=== PATIENT | male | born 1945 | race Caucasian/White ===

== ENCOUNTER 2016-11-22 14:26 | Emergency (ER) | payer MEDICARE, BC ==
[2016-11-22] MEDS ORDERED: Sodium Chloride 0.9% 10 ML Syringe FLUSH PRN ×2 (14:34)
[2016-11-22] MEDS ORDERED: Ondansetron 4 MG/2 ML SDV IVPUSH ONE (14:37)
[2016-11-22] MEDS ORDERED: HYDROmorphone 1 MG/ML Syringe IVPUSH ONE (14:37)
--- NOTE | 2016-11-22 14:43 | EDM.PDOC ---
ED HPI GENERAL MEDICAL PROBLEM - General Chief Complaint: Upper Extremity Injury/Pain Stated Complaint: HURT LT ARM/WRIST Time Seen by Provider: 11/22/16 14:33 Source of Information: Reports: Patient, Family, RN Notes Reviewed History Limitations: Reports: No Limitations - History of Present Illness INITIAL COMMENTS - FREE TEXT/NARRATIVE: 71-year-old gentleman presents emergency department today, fall from a ladder he estimates 5-6 feet he fell predominantly on outstretched arm left side he is complaining of left wrist pain. He denies any loss of consciousness does admit to taking blood thinners of Plavix ,last meal this morning recalls all the details of the mechanism action, past medical history of diabetes, hypertension and dyslipidemia as well as coronary artery disease - Related Data Allergies Allergy/AdvReac Type Severity Reaction Status Date / Time meperidine HCl [From Demerol] Allergy Hallucinati Verified 11/22/16 15:46 ons Penicillins Allergy Hives Verified 11/22/16 15:46 Home Meds: Home Meds Carvedilol [Coreg] 1 tab PO BID 12/19/13 [History] Hydrochlorothiazide 1 tab PO BID 12/19/13 [History] Lisinopril 2 tab PO BID 12/19/13 [History] Omeprazole [Prilosec] 1 tab PO DAILY 12/19/13 [History] amLODIPine [Norvasc] 1 tab PO DAILY 12/19/13 [History] atorvaSTATin [Lipitor] 1 tab PO BEDTIME 12/19/13 [History] metFORMIN [Glucophage] 1,000 mg PO BID 12/19/13 [History] Aspirin 1 tab PO DAILY 09/05/15 [History] Clopidogrel [Plavix] 1 tab PO DAILY 09/05/15 [History] Tamsulosin [Flomax] 1 tab PO BEDTIME 09/05/15 [History] Isosorbide Mononitrate [Isosorbide Mononitrate ER] 30 mg PO DAILY 11/22/16 [ History] Past Medical History Cardiovascular History: Reports: CAD, High Cholesterol, Hypertension Endocrine/Metabolic History: Reports: Diabetes, Type II Social & Family History - Tobacco Use Smoking Status *Q: Never Smoker Review of Systems - Review of Systems Review Of Systems: See Below Constitutional: Reports: No Symptoms Eyes: Reports: No Symptoms Ears: Reports: No Symptoms Nose: Reports: No Symptoms Mouth/Throat: Reports: No Symptoms Respiratory: Reports: No Symptoms Cardiovascular: Reports: No Symptoms GI/Abdominal: Reports: No Symptoms Genitourinary: Reports: No Symptoms Musculoskeletal: Reports: Joint Pain (Left wrist pain) Skin: Reports: Wound Neurological: Reports: No Symptoms Psychiatric: Reports: No Symptoms ED EXAM, GENERAL - Physical Exam Exam: See Below Free Text/Narrative:: 71-year-old gentleman GCS of 15, airways open patent clear able speak in full sentences without difficulty following commands, respiration is symmetrical lungs are clear to auscultation bilaterally cardiovascular demonstrates regular rate and rhythm S1-S2. General: Male, moderate discomfort secondary to pain, alert and oriented x3 HEENT: head is atraumatic normocephalic, eyes pupils equal round reactive to light, sclera clear no conjunctivitis appreciated. Ears tympanic membranes clear and fischer landmarks and light reflex are present bilaterally canals are clear. Nose no septal deviation, nares are clear, no blood present. Mouth mucosa is moist and pink no erythema or exudate noted in soft palate, tongue is midline uvula is midline, dentition is intact. Neck: Supple no thyromegaly no tracheal deviation., No tenderness to palpation spinally or paraspinally full range of motion without pain Nodes: Cervical nodes subclavicular nodes nontender no palpable lymphadenopathy noted. Lungs: clear to auscultation bilaterally with symmetrical respirations, no adventitious noise appreciated. CV: Regular rate and rhythm S1 and S2 appreciated no murmurs rubs or gallops noted. Chest: No tenderness to palpation, no brusing noted Abdomen: Soft, nontender, no palpable masses or organomegaly appreciated, no distention no guarding bowel sounds are present, . Neuro: Cranial nerves II through XII grossly intact Skin: Blood and wound present on the left hand Extremities: Extremities pelvic rock's is negative no tenderness to knees ankles bilaterally right shoulder elbow and wrist no tenderness no tenderness to left shoulder and elbow there is an obvious deformity to the left wrist he is exquisitely tender to palpation capillary refill at the fingernails is less than 2 seconds ED TRAUMA EXTREMITY PROCEDURES - Laceration/Wound Repair Left Finger Lac/Wound Length In cm: 1.5 Appearance: Subcutaneous Distal NVT: Neuro & Vascular Intact, No Tendon Injury Anesthetic Type: Digital Local Anesthesia - Lidocaine (Xylocaine): 1% Plain Local Anesthetic Volume: 2cc Skin Prep: Chlorhexidine (Hibiciens) Saline Irrigation (cc's): 60 Exploration/Debridement/Repair: Wound Explored, In a Bloodless Field, Explored to Base Closed With: Sutures Suture Size: 4-0 # of Sutures: 3 Suture Type: Nylon, Interrupted Sterile Dressing Applied: Nurse Tetanus Status Addressed: Yes (Today) Complications: No - Joint Reduction Site: Other (Left wrist) Sedation: Conscious Cedation Pre-Procedure NV Status: Normal Post-Procedure NV Status: Normal Technique: Traction/Counter Traction Number of Attempts: 1 Post-Reduction Imaging: Completely Reduced Joint Reduction Complications: Yes Progress/Comments: After adequate anesthesia done by [employer], traction countertraction was performed with volar pressure this was done underneath fluoroscopy C-arm when good position and alignment was obtained a sugar tong splint was placed under general traction, radial pulse +2 full range of motion of all digits after procedure was observed - Splinting Left Upper Extremity Splint Site: Wrist Pre-Procedure NV Status: Normal Post-Procedure NV Status: Normal Splint Material: Fiberglass Splint Design: Sugar Tong Applied & Form Fitted By: Provider Provider Post-Splint Application NV Check: NV Status Normal, Good Position Complications: No Course - Vital Signs Last Recorded V/S: Last Vital Signs Temp 96.4 F 11/22/16 14:34 Pulse 60 11/22/16 15:40 Resp 14 11/22/16 15:40 BP 125/78 11/22/16 15:40 Pulse Ox 96 11/22/16 15:40 - Orders/Labs/Meds Orders: Active Orders 24 hr Category Date Time Status Peripheral IV Care [RC] . DIRECTED Care 11/22/16 14:36 Active Vaccines to be Administered [RC] PER UNIT ROUTINE Care 11/22/16 17:03 Ordered Fluoro Up To 1Hr [CR] Stat Exams 11/22/16 16:40 Ordered Hip Min 2V or 3V w Pelvis Lt [CR] Stat Exams 11/22/16 14:52 Taken Wrist 2V Lt [CR] Stat Exams 11/22/16 14:36 Taken Sodium Chloride 0.9% [Saline Flush] Med 11/22/16 14:34 Active 10 ml FLUSH ASDIRECTED PRN Sodium Chloride 0.9% [Saline Flush] Med 11/22/16 14:34 Active 10 ml FLUSH ASDIRECTED PRN ceFAZolin [Ancef] 2 gm Med 11/22/16 17:00 Active Sodium Chloride 0.9% [Normal Saline] 50 ml IV ONETIME Peripheral IV Insertion Adult [OM.PC] Urgent Oth 11/22/16 14:34 Ordered Medication Orders Cefazolin Sodium 2 gm/ Sodium (Chloride) 50 mls @ 100 mls/hr IV ONETIME ONE Stop: 11/22/16 17:29 Last Admin: 11/22/16 16:52 Dose: 100 mls/hr Sodium Chloride (Saline Flush) 10 ml FLUSH ASDIRECTED PRN PRN Reason: Keep Vein Open Sodium Chloride (Saline Flush) 10 ml FLUSH ASDIRECTED PRN PRN Reason: Keep Vein Open Meds: Medications Generic Name Dose Route Start Last Admin Trade Name Freq PRN Reason Stop Dose Admin Cefazolin Sodium 2 gm/ Sodium 50 mls @ 100 mls/hr 11/22/16 17:00 11/22/16 16: 52 Chloride IV 11/22/16 17:29 100 mls/hr ONETIME ONE Administration Sodium Chloride 10 ml 11/22/16 14:34 Saline Flush FLUSH ASDIRECTED PRN Keep Vein Open Sodium Chloride 10 ml 11/22/16 14:34 Saline Flush FLUSH ASDIRECTED PRN Keep Vein Open Discontinued Medications Generic Name Dose Route Start Last Admin Trade Name Freq PRN Reason Stop Dose Admin Bacitracin 1 dose 11/22/16 16:39 11/22/16 16:55 Bacitracin Oint 1 Gm TOP 11/22/16 16:40 1 dose ONETIME ONE Administration Diphtheria/Tetanus/Acell Pertussis 0.5 ml 11/22/16 17:03 Adacel IM 11/22/16 17:04 .ONCE ONE Hydromorphone HCl 1 mg 11/22/16 14:37 11/22/16 14:44 Dilaudid IVPUSH 11/22/16 14:38 1 mg ONETIME ONE Administration Lidocaine HCl 5 ml 11/22/16 16:39 11/22/16 16:55 Xylocaine-Mpf 1% INJECT 11/22/16 16:40 5 ml ONETIME ONE Administration Morphine Sulfate 2 mg 11/22/16 14:52 11/22/16 14:58 Morphine IVPUSH 11/22/16 14:53 2 mg ONETIME ONE Administration Morphine Sulfate 2 mg 11/22/16 15:06 11/22/16 15:18 Morphine IVPUSH 11/22/16 15:07 2 mg ONETIME ONE Administration Morphine Sulfate 4 mg 11/22/16 15:41 11/22/16 15:46 Morphine IVPUSH 11/22/16 15:42 4 mg ONETIME ONE Administration Morphine Sulfate 4 mg 11/22/16 16:32 11/22/16 16:49 Morphine IM 11/22/16 16:33 Not Given ONETIME ONE Morphine Sulfate Confirm 11/22/16 16:31 Morphine Administered 11/22/16 16:32 Dose 4 mg .ROUTE .STK-MED ONE Morphine Sulfate 4 mg 11/22/16 16:39 11/22/16 16:50 Morphine IVPUSH 11/22/16 16:40 4 mg ONETIME ONE Administration Ondansetron HCl 4 mg 11/22/16 14:37 11/22/16 14:43 Zofran IVPUSH 11/22/16 14:38 4 mg ONETIME ONE Administration Propofol Confirm 11/22/16 16:41 Diprivan 20 Ml Administered 11/22/16 16:42 Dose 200 mg .ROUTE .STK-MED ONE Departure - Departure Time of Disposition: 17:20 Disposition: Home, Self-Care 01 Condition: Good Clinical Impression: Reduction defect of left upper extremity Fracture of distal radius and ulna Qualifiers: Encounter type: initial encounter Fracture type: closed Laterality: left Qualified Code(s): S52.502A - Unspecified fracture of the lower end of left radius, initial encounter for closed fracture; S52.602A - Unspecified fracture of lower end of left ulna, initial encounter for closed fracture Fall Qualifiers: Encounter type: initial encounter Qualified Code(s): W19.XXXA - Unspecified fall, initial encounter Laceration of finger, left Qualifiers: Encounter type: initial encounter Finger: ring finger Damage to nail status: without damage Foreign body presence: without foreign body Qualified Code(s): S61.215A - Laceration without foreign body of left ring finger without damage to nail, initial encounter - Discharge Information Referrals: PCP,None [Primary Care Provider] - Forms: ED Department Discharge Additional Instructions: Continue to use Tylenol or ibuprofen as needed for pain control, use morphine for breakthrough pain, please call the [place] [facility] at this is located in [facility] recommend you follow-up with Dr. Peng orthopedic surgery on in his clinic, call return to the emergency department worsening of symptoms - My Orders Last 24 Hours: My Active Orders 11/22/16 14:34 Sodium Chloride 0.9% [Saline Flush] 10 ml FLUSH ASDIRECTED PRN Sodium Chloride 0.9% [Saline Flush] 10 ml FLUSH ASDIRECTED PRN Peripheral IV Insertion Adult [OM.PC] Urgent 11/22/16 14:36 Peripheral IV Care [RC] . DIRECTED Wrist 2V Lt [CR] Stat 11/22/16 16:40 Fluoro Up To 1Hr [CR] Stat 11/22/16 17:00 ceFAZolin [Ancef] 2 gm Sodium Chloride 0.9% [Normal Saline] 50 ml IV ONETIME 11/22/16 17:03 Vaccines to be Administered [RC] PER UNIT ROUTINE - Assessment/Plan Last 24 Hours: My Active Orders 11/22/16 14:34 Sodium Chloride 0.9% [Saline Flush] 10 ml FLUSH ASDIRECTED PRN Sodium Chloride 0.9% [Saline Flush] 10 ml FLUSH ASDIRECTED PRN Peripheral IV Insertion Adult [OM.PC] Urgent 11/22/16 14:36 Peripheral IV Care [RC] . DIRECTED Wrist 2V Lt [CR] Stat 11/22/16 16:40 Fluoro Up To 1Hr [CR] Stat 11/22/16 17:00 ceFAZolin [Ancef] 2 gm Sodium Chloride 0.9% [Normal Saline] 50 ml IV ONETIME 11/22/16 17:03 Vaccines to be Administered [RC] PER UNIT ROUTINE Plan: Assessment Acuity = acute Site and laterality = 1.5 cm laceration digit #3 left hand over the DIP joint palmar surface completely through the dermis, fracture distal radius and ulnar comminuted with dislocation status post reduction, small puncture wound near fracture site complicated patient with known history of coronary artery disease , hypertension and dyslipidemia on Plavix Etiology = secondary to a fall from a ladder 5 feet Manifestations = pain Location of injury = Home Lab values = x-ray describes the fracture above Plan Called discussed case with Dr. Peng orthopedics [facility] recommended sugar tong splint follow-up with him in clinic on , 20 morphine 15mg q4h prn provided for pain control Patient was in agreement with the plan all questions were answered, they were instructed to return to the emergency department or call for worsening symptoms. This note was dictated using Mobile [employer] voice recognition software please call with any questions.
[2016-11-22] MEDS ORDERED: Morphine 2 MG/ML Syringe IVPUSH ONE ×2 (14:52→15:06)
[2016-11-22] MEDS ORDERED: Morphine 4 MG/ML Syringe IVPUSH ONE ×2 (15:41→16:39)
[2016-11-22] MEDS ORDERED: Morphine 4 MG/ML Syringe ONE (16:31)
[2016-11-22] MEDS ORDERED: Morphine 4 MG/ML Syringe IM ONE (16:32)
[2016-11-22] MEDS ORDERED: Bacitracin Oint 1 GM U/D Packet TOP ONE (16:39)
[2016-11-22] MEDS ORDERED: Propofol 200 MG/20 ML SDV ONE (16:41)
[2016-11-22] MEDS ORDERED: ceFAZolin 2 GM in Sodium Chloride 0.9% 50 ML IV ONE (17:00)
[2016-11-22] MEDS ORDERED: Diphtheria,Pertussis(Acell),Tetanus Vaccine 0.5 ML SDV IM ONE (17:03)
[2016-11-22 17:40] VITALS: BP 108/76
--- NOTE | 2016-11-25 08:36 | CR ---
Wrist 2V Lt HISTORY: Fall, pain. COMPARISON: None FINDINGS: Comminuted fracture of the radial metaphysis with significant dorsal displacement and francisco ction of the distal radius relative to the radial shaft. Fracture extends into the radiocarpal joint. Carpal bones appear intact.
--- NOTE | 2016-11-25 08:52 | CR ---
Hip Min 2V or 3V w Pelvis Lt HISTORY: Fall off ladder. COMPARISON: None FINDINGS: Pelvis demonstrates no fracture or diastases. Left hip appears normal.
== END 2016-11-22 17:50 | disposition home or self-care (01) ==
LOC: JP.ED 14:26
DX: S52.502A Unspecified fracture of the lower end of left radius, initial encounter for closed fracture (principal); S52.602A Unspecified fracture of lower end of left ulna, initial encounter for closed fracture; E11.9 Type 2 diabetes mellitus without complications; I10 Essential (primary) hypertension; I25.10 Atherosclerotic heart disease of native coronary artery without angina pectoris; E78.00 Pure hypercholesterolemia, unspecified; E78.5 Hyperlipidemia, unspecified; Z23 Encounter for immunization; Z88.0 Allergy status to penicillin; Z88.8 Allergy status to other drugs, medicaments and biological substances; Z79.899 Other long term (current) drug therapy; Z79.82 Long term (current) use of aspirin; W11.XXXA Fall on and from ladder, initial encounter
CPT/HCPCS: 12001; 25605; 73100; 73502; 76000; 90471; 96365; 96375; 96376; 99283; 99284; J0690; J1170; J2270; J2405; J2704; J7050